=== PATIENT | male | born 1965 | race Caucasian/White ===

== ENCOUNTER 2018-10-19 19:02 | Emergency (ER) | payer BC ==
[2018-10-19 19:44] VITALS: BP 118/80
[2018-10-19] MEDS ORDERED: Amoxicillin/Clavulanate TAB* 875 MG PO ONE ×2 (21:10→21:11)
--- NOTE | 2018-10-19 21:10 | UC ---
Throat Pain/Nasal [place] HPI - HPI Summary HPI Summary: 52-year-old male comes in with a chief complaint of neck pain and swelling. This has been going on for about a day and a half. It does hurt to swallow. He has not tried any [id number] medications. Denies any difficulty breathing. No fevers. Does not have a runny nose or upper respiratory tract infection symptoms. 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 kidney stone with stent - Family History Known Family History: Positive: Non-Contributory - Social History Alcohol Use: None Substance Use Type: None Smoking Status (MU): Heavy Every Day Tobacco Smoker Type: Cigarettes Amount Used/How Often: 1/2 PPD Review of Systems All Other Systems Reviewed And Are Negative: Yes Constitutional: Positive: Negative Skin: Positive: Other - SEE HPI Eyes: Positive: Negative ENT: Positive: Sore Throat Respiratory: Positive: Negative Cardiovascular: Positive: Negative Gastrointestinal: Positive: Negative Motor: Positive: Negative Neurovascular: Positive: Negative Musculoskeletal: Positive: Other: - SEE HPI Neurological: Positive: Negative Psychological: Positive: Negative Is Patient Immunocompromised?: No Physical Exam Triage Information Reviewed: Yes Appearance: Well-Appearing, No Pain Distress, Well-Nourished Vital Signs: Initial Vital Signs Temp 97.9 F 10/19/18 19:39 Pulse 84 10/19/18 19:39 Resp 18 10/19/18 19:39 BP 118/80 10/19/18 19:39 Pulse Ox 99 10/19/18 19:39 Vital Signs Reviewed: Yes Eye Exam: Normal Eyes: Positive: Conjunctiva Clear ENT: Positive: Pharynx normal, TMs normal, Other - TENDER TO PALPATION RIGHT FACE ANTERIOR TO EAR. Neck: Positive: Other: - ON PALPATION OF THE ANTERIOR NECK, I DO NOT APPRECIATE ANY MASSES. SYMMETRIC TO EXAM. Respiratory: Positive: Lungs clear, Normal breath sounds, No respiratory distress Cardiovascular: Positive: RRR Musculoskeletal: Positive: Strength Intact Neurological: Positive: Alert Psychological: Positive: Age Appropriate Behavior Skin: Positive: Other - SKIN OF ANTERIOR NECK WITH MILD ERYTHEMA. NOT HOT TO TOUCH. Throat Pain/Nasal Course/Dx - Course Course Of Treatment: I discussed the rapid strep tests with the patient. When discussing his symptoms patient denies any upper respiratory tract infection symptoms. Does hurt when he swallows. Denies any difficulty breathing. I did not palpate any masses in his neck. Patient states he feels his neck is swollen. I discussed the options of doing a soft tissue CT of his neck to help further define the cause of the symptoms. Patient declined the CT. I discussed treating with an antibiotic which he agreed with. I discussed treating with a steroid to help decrease any soft tissue swelling. The patient declined being treated with a steroid. We discussed going to the emergency department if his symptoms did not improve or if they worsened at all especially if difficulty with breathing. - Differential Dx/Diagnosis Provider Diagnosis: Sore throat, Soft tissue swelling, Neck pain Discharge - Sign-Out/Discharge Documenting (check all that apply): Patient Departure All imaging exams completed and their final reports reviewed: No Studies - Discharge Plan Condition: Stable Disposition: HOME Prescriptions: Amoxicillin/Clavulanate TAB* [Augmentin TAB 875*] 875 mg PO BID #18 tab Patient Education Materials: Acute Neck Pain (ED) Referrals: Sid Lainez MD [Primary Care Provider] - Additional Instructions: FOLLOW UP WITH YOUR DOCTOR. TAKE THE ANTIBIOTIC DIRECTED. YOU CAN TAKE BENADRYL DIRECTED NEEDED IF HELPFUL. GO TO THE EMERGENCY DEPARTMENT FOR ANY WORSENING OF YOUR CONDITION; DIFFICULTY SWALLOWING OR BREATHING, PAIN, FEVER, YOU FEEL ILL OR ANY QUESTIONS OR CONCERNS. - Billing Disposition and Condition Condition: STABLE Disposition: Home
--- NOTE | 2018-10-20 09:25 | UC ---
- Progress Note Progress Note: I called the patient today at 9:20 AM to check up on the urgent care visit from yesterday October 19, 2018. Patient reports to me that the swelling is gone down some. He is getting a neurology follow-up for his right-sided face pain at in [place] being arranged by his primary care doctor. We discussed further that if the swelling got worse or persistent that he should go to the emergency department for further evaluation and care and the patient agreed. Course/Dx - Diagnoses Provider Diagnoses: Sore throat, Soft tissue swelling, Neck pain Discharge - Sign-Out/Discharge Documenting (check all that apply): Patient Departure All imaging exams completed and their final reports reviewed: No Studies - Discharge Plan Condition: Stable Disposition: HOME Prescriptions: Amoxicillin/Clavulanate TAB* [Augmentin TAB 875*] 875 mg PO BID #18 tab Patient Education Materials: Acute Neck Pain (ED) Referrals: Sid Lainez MD [Primary Care Provider] - Additional Instructions: FOLLOW UP WITH YOUR DOCTOR. TAKE THE ANTIBIOTIC DIRECTED. YOU CAN TAKE BENADRYL DIRECTED NEEDED IF HELPFUL. GO TO THE EMERGENCY DEPARTMENT FOR ANY WORSENING OF YOUR CONDITION; DIFFICULTY SWALLOWING OR BREATHING, PAIN, FEVER, YOU FEEL ILL OR ANY QUESTIONS OR CONCERNS. - Billing Disposition and Condition Condition: STABLE Disposition: Home
== END 2018-10-19 21:25 | disposition home or self-care (01) ==
LOC: UCCORT 19:02
DX: J02.9 Acute pharyngitis, unspecified (principal); M79.9 Soft tissue disorder, unspecified; M54.2 Cervicalgia; F17.210 Nicotine dependence, cigarettes, uncomplicated
CPT/HCPCS: 87651; 99202; A9270-GY; G0463

== ENCOUNTER 2019-04-30 11:35 | Emergency (ER) | payer BC ==
[2019-04-30 11:59] VITALS: BP 127/89
--- NOTE | 2019-04-30 12:32 | UC ---
Skin Complaint HPI - HPI Summary HPI Summary: 53-year-old male who has a chronic rash on his arms and legs which occasionally flares up. He started experiencing this approximate 2 or 3 years ago. He is been to many skin specialists and no one can give him an answer as to the cause of this however when it flares up he states he needs prednisone and it usually clears up. He denies any difficulty breathing. - History of Current Complaint Chief Complaint: UCSkin Time Seen by Provider: 04/30/19 12:28 Stated Complaint: RASH Hx Obtained From: Patient Onset/Duration: Gradual Onset, Other - Chronic over the past 2-3 years Skin Exposure Onset/Duration: Days Ago Timing: Constant Onset Severity: Mild Current Severity: Moderate Pain Intensity: 0 Location: Diffuse, Other - Mostly on his arms and legs. Character: Pruritus, Redness - Allergy/Home Medications Allergies/Adverse Reactions: Allergies Allergy/AdvReac Type Severity Reaction Status Date / Time No Known Allergies Allergy Verified 04/30/19 11:59 PMH/Surg Hx/FS Hx/Imm Hx Previously Healthy: Yes - Surgical History Surgical History: Yes Surgery Procedure, Year, and Place: darryl. kidney stone with stent - Family History Known Family History: Positive: Non-Contributory - Social History Occupation: Employed Full-time Alcohol Use: None Substance Use Type: None Smoking Status (MU): Heavy Every Day Tobacco Smoker Type: Cigarettes Amount Used/How Often: 1/2 PPD Review of Systems All Other Systems Reviewed And Are Negative: Yes Skin: Positive: Rash Is Patient Immunocompromised?: No Physical Exam Triage Information Reviewed: Yes Appearance: Well-Appearing, No Pain Distress, Well-Nourished Vital Signs: Initial Vital Signs Temp 98.6 F 04/30/19 11:54 Pulse 83 04/30/19 11:54 Resp 16 04/30/19 11:54 BP 127/89 04/30/19 11:54 Pulse Ox 99 04/30/19 11:54 Vital Signs Reviewed: Yes Eyes: Positive: Conjunctiva Clear Respiratory: Positive: Lungs clear, Normal breath sounds, No respiratory distress, No accessory muscle use Cardiovascular: Positive: RRR, No Murmur, Pulses Normal, Brisk Capillary Refill Musculoskeletal Exam: Normal Neurological Exam: Normal Psychological Exam: Normal Skin: Positive: Rashes - Patient has several areas of what appears to be like a contact dermatitis on his arms and legs. No active drainage. Course/Dx - Course Course Of Treatment: Patient is comfortable here. 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 - Diagnoses Provider Diagnosis: Rash and nonspecific skin eruption Discharge ED - Sign-Out/Discharge Documenting (check all that apply): Patient Departure All imaging exams completed and their final reports reviewed: No Studies - Discharge Plan Condition: Good Disposition: HOME Prescriptions: predniSONE TAB* [Deltasone 10 MG TAB*] 10 mg PO DAILY 12 Days #30 tab Patient Education Materials: Acute Rash (ED) Referrals: Sid Lainez MD [Primary Care Provider] - Additional Instructions: Take the prednisone with food, follow-up with your primary care provider if no improvement or worsening symptoms. - Billing Disposition and Condition Condition: GOOD Disposition: Home - Attestation Statements Provider Attestation: I was available for consult. This patient was seen by the MIKE. The patient was not presented to, seen by, or examined by me. -Osbaldo
== END 2019-04-30 12:40 | disposition home or self-care (01) ==
LOC: UCCORT 11:35
DX: R21 Rash and other nonspecific skin eruption (principal); F17.210 Nicotine dependence, cigarettes, uncomplicated
CPT/HCPCS: 99212; G0463